=== PATIENT | male | born 1985 | race Caucasian/White ===

== ENCOUNTER 2021-03-08 05:45 | Emergency (ER) | payer BC ==
[~2021-03-08] VITALS: Ht 175.3 cm; Wt 83.0 kg
[2021-03-08] MEDS ORDERED: METOCLOPRAMIDE HCL 10MG/2ML VIAL IV ONE (08:00)
[2021-03-08] MEDS ORDERED: SODIUM CHLORIDE 0.9% 1,000 ML IV ONE ×2 (08:00)
[2021-03-08 08:42] LABS: BASOPHILS % 0.1 % (0.0-2.0); EOSINOPHILS % 0.3 % (0.0-5.0); HEMATOCRIT. 34.3 % (42.0-52.0); HEMOGLOBIN. 11.8 g/dL (14.0-18.0); LYMPHOCYTES % 16.3 % (20.0-50.0); MEAN CORPUSCULAR HEMOGLOBIN 29.8 pg (28.0-32.0); MEAN CORPUSCULAR VOLUME 86.8 fL (80.0-94.0); MEAN PLATELET VOLUME 7.3 fl (7.4-10.4); MONOCYTES % 6.9 % (2.0-8.0); NEUTROPHILS % 76.4 % (40.0-76.0); PLATELET 339 x1000/uL (130-400); RED BLOOD CELL COUNT 3.95 mill/uL (4.7-6.1); RED CELL DISTRIBUTION WIDTH 14.7 % (11.6-14.6)
[2021-03-08 08:49] LABS: CHLORIDE 96 mEq/L (98-107)
[2021-03-08] MEDS ORDERED: POTASSIUM CHLORIDE INJ 40 MEQ in DEXT 5% WATER 500 ML IV ONE (09:45)
[2021-03-08] MEDS ORDERED: MAGNESIUM 2 G PREMIX 50 ML IV ONE (09:45)
[2021-03-08] MEDS ORDERED: POTASSIUM CHLORIDE 20MEQ/PACKET PO ONE (09:45)
[2021-03-08] MEDS ORDERED: CALCIUM GLUCONATE 100MG/ML 10ML VIAL IV ONE ×2 (09:45→10:00)
[2021-03-08] MEDS ORDERED: MAGNESIUM 1 G PREMIX 100 ML IV ONE (09:45)
[2021-03-08] MEDS ORDERED: IOHEXOL-300 100 ML BOTTLE ONE (09:50)
[2021-03-08] MEDS ORDERED: CALCIUM GLUCONATE 1000 MG in DEXTROSE 5% WATER 100 ML IV NR (10:00)
[2021-03-08] MEDS ORDERED: CALCIUM GLUCONATE 1GM PREMIX 50 ML IV NR ×2 (10:07→11:30)
[2021-03-08] MEDS ORDERED: CALCIUM GLUCONATE IV NR (10:15)
[2021-03-08] MEDS ORDERED: [UNRECOGNIZED DRUG - OTHER] IV NR (10:15)
[2021-03-08] MEDS ORDERED: POTASSIUM CHLORIDE INJ 40 MEQ in DEXT 5% WATER 250 ML IV NR (10:15)
[2021-03-08] MEDS ORDERED: LORAZEPAM 1MG TABLET PO ONE (10:30)
[2021-03-08 12:00] VITALS: BP 105/81
== END 2021-03-08 13:30 | disposition left against medical advice (07) ==
LOC: ER 05:45
DX: R11.2 Nausea with vomiting, unspecified (principal); E87.8 Other disorders of electrolyte and fluid balance, not elsewhere classified; R00.0 Tachycardia, unspecified; C96.9 Malignant neoplasm of lymphoid, hematopoietic and related tissue, unspecified; Z92.21 Personal history of antineoplastic chemotherapy; Z90.49 Acquired absence of other specified parts of digestive tract
CPT/HCPCS: 36415; 71045; 74177; 80053; 83690; 83735; 83880; 84484; 85025; 93005; 96361; 96365; 96366; 96368; 96375; 99285; J0610; J2765; J3475; J3480; J7030; J7060; Q9967